=== PATIENT | female | born 1990 | race Caucasian/White ===

== ENCOUNTER 2017-12-11 16:06 | Emergency (ER) | payer OTHER ==
[2017-12-11] MEDS: SOD CHLORIDE 0.9% 1,000 ML IV (17:04)
[2017-12-11] MEDS: ONDANSETRON 4 MG INJ IV (17:04)
[2017-12-11 17:14] LABS: ADD MAN DIFF? NO
[2017-12-11 17:22] LABS: BASOPHIL # 0.1 10^3/ul (0.0-0.1); BASOPHILS % 0.6 % (0.0-2.0); EOSINOPHILS # 0.4 10^3/ul (0.0-0.5); EOSINOPHILS % 4.2 % (0.0-7.0); HEMATOCRIT 38.3 % (37.0-47.0); HEMOGLOBIN 12.6 g/dl (12.0-16.0); LYMPHOCYTES # 3.3 10^3/ul (0.8-2.9); LYMPHOCYTES % 32.7 % (15.0-51.0); MEAN CORPUSCULAR HEMOGLOBIN 27.3 pg (29.0-33.0); MEAN CORPUSCULAR HGB CONC 32.9 g/dl (32.0-37.0); MEAN CORPUSCULAR VOLUME 83.1 fl (82.0-101.0); MEAN PLATELET VOLUME 10.7 fl (7.4-10.4); MONOCYTE # 0.6 10^3/ul (0.3-0.9); NEUTROPHIL # 5.6 10^3/ul (1.6-7.5); NEUTROPHILS % 56.1 % (39.0-77.0); PLATELET COUNT 282 10^3/UL (140-415); RED BLOOD COUNT 4.61 10^6/ul (4.20-5.40); RED CELL DISTRIBUTION WIDTH 13.3 % (11.5-14.5)
[2017-12-11 17:29] LABS: ADD UMIC YES; UR ASCORBIC ACID 20 mg/dL (NEGATIVE); UR BACTERIA MODERATE /HPF (NONE SEEN); UR BILIRUBIN (Dip) NEGATIVE (NEGATIVE); UR BLOOD (Dip) NEGATIVE (NEGATIVE); UR CLARITY CLEAR (CLEAR); UR COLOR YELLOW (YELLOW); UR GLUCOSE (Dip) NEGATIVE (NEGATIVE); UR KETONES (Dip) NEGATIVE (NEGATIVE); UR LEUKOCYTE ESTERASE (Dip) 1+ Leu/ul (NEGATIVE); UR NITRITE (Dip) NEGATIVE (NEGATIVE); UR RBC 1 /HPF (0-5); UR SPECIFIC GRAVITY (Dip) 1.009 (1.003-1.030); UR SQUAMOUS EPITHELIAL CELL FEW /HPF (FEW); UR TOTAL PROTEIN (Dip) NEGATIVE (NEGATIVE); UR UROBILINOGEN (Dip) NEGATIVE (NEGATIVE); UR WBC 1 /HPF (0-5)
== END 2017-12-11 19:36 | disposition home or self-care (01) ==
LOC: FTE 16:06
DX: O23.42 Unspecified infection of urinary tract in pregnancy, second trimester (principal); M54.5 Low back pain; Z3A.14 14 weeks gestation of pregnancy
CPT/HCPCS: 36415; 76805; 81001; 84702; 85025; 86900; 86901; 96374; 99285-25

== ENCOUNTER 2018-03-25 11:11 | Outpatient (CLI) | payer OTHER | END 2018-03-25 13:10 | disposition home or self-care (01) | LOC: OBT 11:11 → L-D 11:11 → OBT 13:10 | DX: O36.8190 Decreased fetal movements, unspecified trimester, not applicable or unspecified (principal); Z3A.00 Weeks of gestation of pregnancy not specified | CPT/HCPCS: 76818 ==

== ENCOUNTER 2018-06-02 12:34 | Inpatient (IN) | payer OTHER ==
[2018-06-02] MEDS ORDERED: MISOPROSTOL 200 MCG TAB PR (14:30)
[2018-06-02] MEDS ORDERED: LIDOCAINE 1% (MPF) 30 ML INJ INJ (14:30)
[2018-06-02] MEDS ORDERED: BUTORPHANOL 2 MG INJ IV (14:30)
[2018-06-02] MEDS ORDERED: OXYTOCIN 30 UNITS/LR 500 ML IV (14:30)
[2018-06-02] MEDS ORDERED: CARBOPROST 250 MCG INJ IM (14:30)
[2018-06-02] MEDS ORDERED: METHYLERGONOVINE 0.2 MG INJ IM (14:30)
[2018-06-02] MEDS: LACTATED RINGER'S 1,000 ML IV ×2 (15:31→21:11)
[2018-06-02] MEDS: OXYTOCIN 30 UNITS/LR 500 ML IV (15:40)
[2018-06-02 15:44] LABS: ADD MAN DIFF? NO
[2018-06-02 15:45] LABS: WHITE BLOOD COUNT 12.5 10^3/ul (4.8-10.8)
[2018-06-02 15:45] LABS: BASOPHIL # 0.1 10^3/ul (0.0-0.1); BASOPHILS % 0.4 % (0.0-2.0); EOSINOPHILS # 0.2 10^3/ul (0.0-0.5); EOSINOPHILS % 1.6 % (0.0-7.0); HEMATOCRIT 39.7 % (37.0-47.0); HEMOGLOBIN 13.2 g/dl (12.0-16.0); LYMPHOCYTES # 3.3 10^3/ul (0.8-2.9); LYMPHOCYTES % 26.3 % (15.0-51.0); MEAN CORPUSCULAR HEMOGLOBIN 28.2 pg (29.0-33.0); MEAN CORPUSCULAR HGB CONC 33.2 g/dl (32.0-37.0); MEAN CORPUSCULAR VOLUME 84.8 fl (82.0-101.0); MEAN PLATELET VOLUME 12.1 fl (7.4-10.4); MONOCYTE # 0.9 10^3/ul (0.3-0.9); MONOCYTES % 7.3 % (0.0-11.0); NEUTROPHILS % 63.6 % (39.0-77.0); PLATELET COUNT 230 10^3/UL (140-415); RED BLOOD COUNT 4.68 10^6/ul (4.20-5.40); RED CELL DISTRIBUTION WIDTH 14.7 % (11.5-14.5)
[2018-06-02 16:06] LABS: INR 0.86; PROTIME 11.8 Sec (11.9-14.9); PT RATIO 0.9
[2018-06-02 16:07] LABS: PARTIAL THROMBOPLASTIN TIME 25.3 Sec (23.0-35.0)
[2018-06-02 17:02] LABS: HEPATITIS B SURFACE ANTIGEN NEGATIVE (NEGATIVE)
[2018-06-03] MEDS: LACTATED RINGER'S 1,000 ML IV ×4 (00:29→23:17)
[2018-06-03] MEDS ORDERED: FENTAnyl 2MCG/ML-ROPIV 0.2% 100 ML (00:50)
[2018-06-03] MEDS ORDERED: ONDANSETRON 4 MG INJ IV (01:00)
[2018-06-03] MEDS ORDERED: NALOXONE (0.4 MG/ML) INJ IV (01:00)
[2018-06-03] MEDS: FENTAnyl 2MCG/ML-ROPIV 0.2% 100 ML BAG EPI ×2 (01:36→09:34)
[2018-06-03] MEDS: DIPHENHYDRAMINE 50 MG INJ IV (02:16)
[2018-06-03] MEDS ORDERED: MINERAL OIL LIGHT 10 ML VIAL (15:42)
[2018-06-03 16:22] LABS: RAPID PLASMA REAGIN NONREACTIVE (NR)
[2018-06-03] MEDS ORDERED: AMPICILLIN 2 GM/NS (PMX) 100 ML IVPB (19:00)
[2018-06-03] MEDS: MINERAL OIL LIGHT 10 ML VIAL TOP (19:00)
[2018-06-03] MEDS: OXYTOCIN 30 UNITS/LR 500 ML IV ×2 (19:02→19:03)
[2018-06-03] MEDS: IBUPROFEN 600 MG TAB PO (19:29)
[2018-06-03] MEDS: AMPICILLIN 2 GM/NS (PMX) 100 ML IVPB (19:31)
[2018-06-03] MEDS ORDERED: ACETAMINOPHEN 325 MG TAB PO (21:00)
[2018-06-03] MEDS ORDERED: METHYLERGONOVINE 0.2 MG INJ IM (21:30)
[2018-06-03] MEDS ORDERED: OXYTOCIN 30 UNITS/LR 500 ML IV (21:30)
[2018-06-03] MEDS ORDERED: OXYCODONE/ASPIRIN (4.88/325) TAB PO (21:30)
[2018-06-03] MEDS ORDERED: CARBOPROST 250 MCG INJ IM (21:30)
[2018-06-03] MEDS ORDERED: MISOPROSTOL 200 MCG TAB PR (21:30)
[2018-06-03] MEDS ORDERED: ZOLPIDEM 5 MG TAB PO (21:30)
[2018-06-04] MEDS: LANOLIN HPA 1 PKT TOP (00:38)
[2018-06-04] MEDS: IBUPROFEN 600 MG TAB PO ×4 (00:38→17:33)
[2018-06-04] MEDS: WITCH HAZEL/GLYCERIN PAD PR (00:39)
[2018-06-04] MEDS: BENZOCAINE 20% 56 ML SPRAY TOP (00:39)
[2018-06-04] MEDS: AMPICILLIN 2 GM/NS (PMX) 100 ML IVPB ×2 (01:22→07:09)
[2018-06-04 07:40] LABS: ADD MAN DIFF? NO
[2018-06-04 07:43] LABS: WHITE BLOOD COUNT 18.8 10^3/ul (4.8-10.8)
[2018-06-04 07:43] LABS: BASOPHIL # 0.1 10^3/ul (0.0-0.1); BASOPHILS % 0.3 % (0.0-2.0); EOSINOPHILS # 0.1 10^3/ul (0.0-0.5); EOSINOPHILS % 0.4 % (0.0-7.0); HEMATOCRIT 33.5 % (37.0-47.0); LYMPHOCYTES # 2.6 10^3/ul (0.8-2.9); LYMPHOCYTES % 13.9 % (15.0-51.0); MEAN CORPUSCULAR HGB CONC 32.8 g/dl (32.0-37.0); MEAN CORPUSCULAR VOLUME 85.2 fl (82.0-101.0); MEAN PLATELET VOLUME 11.7 fl (7.4-10.4); MONOCYTE # 1.2 10^3/ul (0.3-0.9); MONOCYTES % 6.3 % (0.0-11.0); NEUTROPHIL # 14.7 10^3/ul (1.6-7.5); NEUTROPHILS % 78.6 % (39.0-77.0); PLATELET COUNT 207 10^3/UL (140-415); RED BLOOD COUNT 3.93 10^6/ul (4.20-5.40); RED CELL DISTRIBUTION WIDTH 14.6 % (11.5-14.5)
[2018-06-04] MEDS: SENNA/DOCUSATE NA (8.6MG/50MG) TAB PO ×2 (09:24→22:33)
[2018-06-04] MEDS: LACTATED RINGER'S 1,000 ML IV ×3 (11:49→23:00)
[2018-06-04] MEDS: OXYCODONE/ASPIRIN (4.88/325) TAB PO (22:34)
[2018-06-05] MEDS: OXYCODONE/ASPIRIN (4.88/325) TAB PO (04:29)
[2018-06-05] MEDS: IBUPROFEN 600 MG TAB PO ×3 (06:00→11:53)
[2018-06-05] MEDS: LACTATED RINGER'S 1,000 ML IV ×2 (07:00→15:00)
[2018-06-05 08:02] LABS: HEMATOCRIT 34.4 % (37.0-47.0); HEMOGLOBIN 11.1 g/dl (12.0-16.0); MEAN CORPUSCULAR HEMOGLOBIN 27.8 pg (29.0-33.0); MEAN CORPUSCULAR HGB CONC 32.3 g/dl (32.0-37.0); MEAN CORPUSCULAR VOLUME 86.2 fl (82.0-101.0); MEAN PLATELET VOLUME 11.2 fl (7.4-10.4); PLATELET COUNT 230 10^3/UL (140-415); RED BLOOD COUNT 3.99 10^6/ul (4.20-5.40); RED CELL DISTRIBUTION WIDTH 14.8 % (11.5-14.5)
[2018-06-05 08:08] LABS: POSITIVE DIFF @See below
[2018-06-05 08:09] LABS: ADD MAN DIFF? YES
[2018-06-05] MEDS: BENZOCAINE 20% 56 ML SPRAY TOP (08:48)
[2018-06-05] MEDS: LANOLIN HPA 1 PKT TOP (08:48)
[2018-06-05] MEDS: SENNA/DOCUSATE NA (8.6MG/50MG) TAB PO (08:48)
[2018-06-05] MEDS: WITCH HAZEL/GLYCERIN PAD PR (08:48)
[2018-06-05] MEDS: DIPHTH/TET/ACEL PERTUSS (ADULT) 0.5 ML VIAL IM* (09:00)
[2018-06-05 09:30] LABS: ANISOCYTOSIS 1+ (0-0); BAND NEUTROPHILS #M 2.4 10^3/ul (0.0-0.6); BAND NEUTROPHILS % (M) 12 % (0-4); EOSINOPHILS % (M) 3 % (0-7); LYMPHOCYTES #M 3.6 10^3/ul (0.8-2.9); LYMPHOCYTES % (M) 18 % (15-51); MONOCYTE #M 0.4 10^3/ul (0.3-0.9); MONOCYTES % (M) 2 % (0-11); PLATELET ESTIMATE NORMAL; POLYCHROMASIA 1+ (0-0); REACTIVE LYMPHOCYTES #M 1.2 10^3/ul (0.0-0.0); REACTIVE LYMPHOCYTES% (M) 6 % (0-0); SEG NEUT #M 12.1 10^3/ul (1.6-7.5); SEGMENTED NEUTROPHILS (M) % 58 % (39-77); SMUDGE%M 59 % (0-0)
[2018-06-05 13:14] LABS: ADD MAN DIFF? NO
[2018-06-05 13:17] LABS: WHITE BLOOD COUNT 16.6 10^3/ul (4.8-10.8)
[2018-06-05 13:17] LABS: BASOPHIL # 0.1 10^3/ul (0.0-0.1); BASOPHILS % 0.3 % (0.0-2.0); EOSINOPHILS # 0.3 10^3/ul (0.0-0.5); EOSINOPHILS % 1.9 % (0.0-7.0); HEMATOCRIT 33.2 % (37.0-47.0); HEMOGLOBIN 10.8 g/dl (12.0-16.0); LYMPHOCYTES # 3.2 10^3/ul (0.8-2.9); LYMPHOCYTES % 19.1 % (15.0-51.0); MEAN CORPUSCULAR HEMOGLOBIN 27.9 pg (29.0-33.0); MEAN CORPUSCULAR HGB CONC 32.5 g/dl (32.0-37.0); MEAN CORPUSCULAR VOLUME 85.8 fl (82.0-101.0); MONOCYTES % 5.7 % (0.0-11.0); NEUTROPHILS % 72.4 % (39.0-77.0); PLATELET COUNT 199 10^3/UL (140-415); RED BLOOD COUNT 3.87 10^6/ul (4.20-5.40); RED CELL DISTRIBUTION WIDTH 14.7 % (11.5-14.5)
[2018-06-05 13:21] LABS: ADD UMIC YES; UR ASCORBIC ACID NEGATIVE (NEGATIVE); UR BACTERIA FEW /HPF (NONE SEEN); UR BILIRUBIN (Dip) NEGATIVE (NEGATIVE); UR BLOOD (Dip) 3+ mg/dL (NEGATIVE); UR CLARITY CLEAR (CLEAR); UR COLOR STRAW (YELLOW); UR GLUCOSE (Dip) NEGATIVE (NEGATIVE); UR KETONES (Dip) NEGATIVE (NEGATIVE); UR LEUKOCYTE ESTERASE (Dip) 1+ Leu/ul (NEGATIVE); UR MUCUS FEW /HPF (NONE SEEN); UR NITRITE (Dip) NEGATIVE (NEGATIVE); UR RBC > 182 /HPF (0-5); UR SPECIFIC GRAVITY (Dip) 1.006 (1.003-1.030); UR SQUAMOUS EPITHELIAL CELL FEW /HPF (FEW); UR TOTAL PROTEIN (Dip) NEGATIVE (NEGATIVE); UR UROBILINOGEN (Dip) NEGATIVE (NEGATIVE); UR WBC 25 /HPF (0-5)
== END 2018-06-05 16:10 | disposition home or self-care (01) | DRG 807 ==
LOC: OBT 12:34 → L-D 12:35 → PP1 06-03 21:13 → OBT 14:16 → L-D 14:16
PROVIDERS: Obstetrics & Gynecology
PROC: 10D07Z6 Extraction of Products of Conception, Vacuum, Via Natural or Artificial Opening (ICD-10-PCS; principal; 2018-06-03)
DX: O69.81X0 Labor and delivery complicated by cord around neck, without compression, not applicable or unspecified (principal); Z37.0 Single live birth; Z3A.38 38 weeks gestation of pregnancy
CPT/HCPCS: 62319; 76815; 76818; 81001; 85025; 85610; 85730; 86592; 86900; 86901; 87086; 87340; 99464

== ENCOUNTER 2018-06-07 21:22 | Emergency (ER) | payer OTHER ==
[2018-06-07] MEDS: KETOROLAC 30 MG INJ IV (22:50)
[2018-06-07] MEDS: FUROSEMIDE 40 MG INJ IV (22:50)
[2018-06-07 22:57] LABS: ADD MAN DIFF? NO
[2018-06-07 22:58] LABS: WHITE BLOOD COUNT 13.9 10^3/ul (4.8-10.8)
[2018-06-07 22:58] LABS: BASOPHIL # 0.1 10^3/ul (0.0-0.1); BASOPHILS % 0.4 % (0.0-2.0); EOSINOPHILS # 0.3 10^3/ul (0.0-0.5); EOSINOPHILS % 2.2 % (0.0-7.0); HEMATOCRIT 35.4 % (37.0-47.0); HEMOGLOBIN 11.4 g/dl (12.0-16.0); LYMPHOCYTES # 2.7 10^3/ul (0.8-2.9); LYMPHOCYTES % 19.3 % (15.0-51.0); MEAN CORPUSCULAR HEMOGLOBIN 27.9 pg (29.0-33.0); MEAN CORPUSCULAR HGB CONC 32.2 g/dl (32.0-37.0); MEAN CORPUSCULAR VOLUME 86.6 fl (82.0-101.0); MEAN PLATELET VOLUME 10.5 fl (7.4-10.4); MONOCYTE # 0.8 10^3/ul (0.3-0.9); MONOCYTES % 5.9 % (0.0-11.0); NEUTROPHILS % 71.4 % (39.0-77.0); PLATELET COUNT 283 10^3/UL (140-415); RED BLOOD COUNT 4.09 10^6/ul (4.20-5.40); RED CELL DISTRIBUTION WIDTH 14.3 % (11.5-14.5)
[2018-06-07 23:28] LABS: ALANINE AMINOTRANSFERASE 19 IU/L (13-69); ALBUMIN 3.6 g/dl (3.3-4.9); ALKALINE PHOSPHATASE 123 IU/L (42-121); ANION GAP 14 (5-13); ASPARTATE AMINO TRANSFERASE 31 IU/L (15-46); BLOOD UREA NITROGEN 11 mg/dl (7-20); CALCIUM 9.7 mg/dl (8.4-10.2); CARBON DIOXIDE 26 mmol/L (21-31); CHLORIDE 101 mmol/L (97-110); CREATININE 0.45 mg/dl (0.44-1.00); Estimated GFR > 60 mL/min (>60); GLUCOSE 100 mg/dl (70-220); POTASSIUM 4.2 mmol/L (3.5-5.1); SODIUM 141 mmol/L (135-144); TOTAL PROTEIN 7.2 g/dl (6.1-8.1)
[2018-06-07 23:31] LABS: ADD UMIC YES; UR ASCORBIC ACID NEGATIVE (NEGATIVE); UR BACTERIA MODERATE /HPF (NONE SEEN); UR BILIRUBIN (Dip) NEGATIVE (NEGATIVE); UR BLOOD (Dip) 3+ mg/dL (NEGATIVE); UR CLARITY SLIGHTLY CLOUDY (CLEAR); UR COLOR YELLOW (YELLOW); UR GLUCOSE (Dip) NEGATIVE (NEGATIVE); UR KETONES (Dip) NEGATIVE (NEGATIVE); UR LEUKOCYTE ESTERASE (Dip) 3+ Leu/ul (NEGATIVE); UR NITRITE (Dip) NEGATIVE (NEGATIVE); UR RBC > 182 /HPF (0-5); UR SPECIFIC GRAVITY (Dip) 1.006 (1.003-1.030); UR SQUAMOUS EPITHELIAL CELL FEW /HPF (FEW); UR TOTAL PROTEIN (Dip) NEGATIVE (NEGATIVE); UR UROBILINOGEN (Dip) NEGATIVE (NEGATIVE); UR WBC 135 /HPF (0-5)
[2018-06-07 23:39] LABS: TROPONIN-I < 0.012 ng/ml (0.000-0.120)
[2018-06-07] MEDS: CEFTRIAXONE 1 GM/50 ML (PMX) 50 ML IVPB (23:53)
== END 2018-06-08 00:34 | disposition home or self-care (01) ==
LOC: E/R 06-08 00:34
DX: O86.21 Infection of kidney following delivery (principal); B96.89 Other specified bacterial agents as the cause of diseases classified elsewhere; R07.9 Chest pain, unspecified
CPT/HCPCS: 36415; 71045; 80053; 81001; 84484; 85025; 93005; 96374; 96375; 99285-25